=== PATIENT | female | born 1940 | race Caucasian/White ===

== ENCOUNTER → 2021-10-10 13:05 | Outpatient (CLI) | payer MEDICARE, SELFPAY ==
[2021-10-10 15:14] LABS: COVID19 -Nasal RAPID Negative (Negative)
== END ==
PROVIDERS: Referring Provider Physician Assistant; Visit Provider Physician Assistant
DX: Z20.822 Contact with and (suspected) exposure to COVID-19 (principal); R05.9 Cough, unspecified; R09.81 Nasal congestion
CPT/HCPCS: 87635

== ENCOUNTER → 2023-12-26 15:19 | Outpatient (CLI) | payer MEDICARE, SELFPAY ==
[2023-12-26 16:10] LABS: Influenza A - CEPHEID Flu A NEGATIVE (NEGATIVE); Influenza B - CEPHEID Flu B NEGATIVE (NEGATIVE); Respiratory Syncytial Virus Negative (Negative)
[2023-12-26 16:12] LABS: COVID-19 CEPHEID 4-PLEX PCR Negative (Negative)
== END ==
PROVIDERS: Visit Provider Registered Nurse
DX: Z20.828 Contact with and (suspected) exposure to other viral communicable diseases (principal)
CPT/HCPCS: 0241U

== ENCOUNTER 2024-12-10 16:44 | Emergency (ER) | payer MEDICARE, SELFPAY ==
[2024-12-10 16:47] VITALS: BP 176/87; PULSE 74; RESP 20; TEMP 36.4; O2SAT 95; BMI 19.3
--- NOTE | 2024-12-10 16:56 | DI.RAD.S_ITS ---
PROCEDURE: XR CHEST 1V INDICATIONS: Shortness of breath TECHNIQUE: One view of the chest was acquired. COMPARISON: None. FINDINGS: Surgical changes and devices: None. Lungs and pleura: Hyperinflation. Chronic emphysematous changes are noted. Mild pulmonary vascular congestion is seen. No definite focal infiltrate. No pleural effusions or pneumothorax. Mediastinum: Mediastinal contours appear normal. Heart size is normal. Bones and chest wall: No suspicious bony lesions. Overlying soft tissues appear unremarkable. IMPRESSION: COPD and mild congestion. No definite focal infiltrate. No significant pleural effusion or gross pneumothorax. Dictated by: Herson Armas M.D. on 12/10/2024 at 17:25 Approved by: Herson Armas M.D. on 12/10/2024 at 17:25
--- NOTE | 2024-12-10 16:56 | EKG_ITS ---
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
[2024-12-10 17:25] LABS: Add Manual Diff / Slide Review NO; Basophils Absolute Auto 100 /uL (0-100); Basophils Percent Auto 0.9 % (0-2); Eosinophils Absolute Auto 0 /uL (0-450); Eosinophils Percent Auto 0.5 % (2-4); Hematocrit 41.8 % (36-46); Lymphocytes Absolute Auto 1300 /uL (1100-4500); Mean Corpuscular HGB Conc 33.5 % (30-36); Mean Corpuscular Hemoglobin 31.6 PG (26-34); Mean Corpuscular Volume 94.2 fL (80-100); Monocytes Absolute Auto 900 /uL (0-900); Neutrophils Absolute Auto 5000 /uL (1500-7000); Neutrophils Percent Auto 68.6 % (50-75); Platelet Count 395 X10^3/uL (150-400); Red Blood Cell Count 4.44 X10^6/uL (4.0-5.2); Red Cell Distribution Width 13.4 % (11.6-14.8); White Blood Cell Count 7.4 X10^3/uL (4.5-11.0)
[2024-12-10 17:33] LABS: Prothrombin Time 11.1 SECONDS (9.4-12.5)
[2024-12-10 17:36] LABS: Lactate (Lactic Acid) 1.3 mmol/L (0.7-2.1)
[2024-12-10 17:37] LABS: Alanine Aminotransferase 35 IU/L (<35); Albumin 4.4 g/dL (3.5-5.0); Albumin Globulin Ratio 1.1 (1.0-2.8); Alkaline Phosphatase 123 U/L (38-126); Aspartate Aminotransferase 66 IU/L (14-36); BUN Creatinine Ratio 22.9 (6-22); Bilirubin Total 1.2 mg/dL (0.2-1.3); Blood Urea Nitrogen 11 mg/dL (7-17); Calcium 9.4 mg/dL (8.4-10.2); Carbon Dioxide 26 mmol/L (22-32); Chloride 93 mmol/L (98-107); Estimated Glomerular Filt Rate > 60 mL/min (>60); Globulin 3.9 g/dL (1.7-4.1); Glucose 112 mg/dL (80-110); Potassium 5.1 mmol/L (3.4-5.1); Sodium 126 mmol/L (137-145); Total Protein 8.3 g/dL (6.3-8.2)
[2024-12-10 17:41] LABS: Influenza A - CEPHEID Flu A POSITIVE (NEGATIVE); Influenza B - CEPHEID Flu B NEGATIVE (NEGATIVE); Respiratory Syncytial Virus Negative (Negative)
[2024-12-10 17:42] LABS: COVID-19 CEPHEID 4-PLEX PCR Negative (Negative)
[2024-12-10 17:49] LABS: HEMOLYSIS 164 (0-50); NT-proBNP (BNP-Adult 18+) 368 pg/mL (<450); Troponin I < 0.012 ng/mL (0.01-0.034)
--- NOTE | 2024-12-10 21:00 | PC.NURSE ---
FLU x one week with n/v/d
--- NOTE | 2024-12-10 21:28 | ED.SOB ---
HPI - SOB/Dyspnea General Chief Complaint: Shortness of Breath/Dyspnea Stated Complaint: flu symptoms, abd x1 wk Time Seen by Provider: 12/10/24 21:28 Source: patient Mode of arrival: Ambulatory Limitations: no limitations History of Present Illness HPI Narrative: A 84-year-old female without any significant past medical history comes into the ED from home with son for evaluation of shortness of breath flu-like symptoms. According to the patient she has been experiencing these symptoms for the past several days got worse today. Son at bedside states that he would similar symptoms, patient stating that she has not having any actual chest pain, denies any other symptoms such as headache visual disturbances did notice some mild nausea no vomiting and abdominal cramping but states that this has since resolved. Patient denies any recent travel denies blood thinner usage. Related Data Previous Rx's Medication Instructions Recorded inhalational spacing device #1 ea 10/10/21 ([employer] spacer) albuterol sulfate 90 mcg/actuation 2 puff inhalation Q4-6H PRN 09/28/22 aerosol inhaler shortness of breath #8.5 grams albuterol sulfate 90 mcg/actuation 2 puff inhalation Q4-6H PRN 12/26/23 aerosol inhaler shortness of breath or wheezing #8.5 grams ondansetron 4 mg disintegrating 4 mg PO Q8H PRN nausea and 12/10/24 tablet vomiting 5 days #15 tabs Allergies Allergy/AdvReac Type Severity Reaction Status Date / Time No Known Drug Allergies Allergy Verified 12/26/23 15:20 Review of Systems Review of Systems Narrative: General: Denies fever, chills, weight loss HEENT: Denies headache, eye drainage, eye irritation, head trauma, sore throat, voice change Cardiovascular: Denies any chest pain, palpitations, shortness of breath, tachycardia Respiratory: Positive shortness of breath, cough, denies wheeze, stridor GI/: Positive,nausea, Denies any abdominal pain, vomiting, diarrhea, bright red blood per rectum, melanotic stools, urinary frequency, urinary retention, dysuria, hematuria MSK: Denies any joint pain, muscle pains, swelling Skin: Denies any rashes, lesions, discoloration Neuro: Denies any headache, lightheadedness, dizziness, fainting, weakness Psych: Denies SI/HI Patient History Medical History Asthma Social History Smoking Status: Current every day smoker Smoking Status: Current every day smoker tobacco type: cigarettes Exam Narrative Exam Narrative: General: Cooperative, comfortable, well-developed, not in acute distress HEENT: Normocephalic, atraumatic, PERRLA, normal sclera, eyelids normal, Neck: Active full range of motion, atraumatic Chest: Normal to inspection, negative crepitus, no overlying erythema ecchymosis Respiratory: Normal respiratory effort, not in acute respiratory distress, clear to auscultation bilaterally negative cough, wheeze, tachypnea, rhonchi, rales Cardiology: Regular rate rhythm negative gallop, murmur, rubs GI/: Normal to inspection, soft, nonrigid, no tenderness to palpation, exam deferred MSK: Full range of active range of motion of all 4 extremities, atraumatic Skin: No rashes lesions noted Neuro: Alert awake oriented x3, moves all 4 extremities spontaneously, cranial nerves intact, able to answer all questions appropriately follows commands appropriately Psych: Cooperative, negative suicidal or homicidal ideations Initial Vital Signs Initial Vital Signs: Vital Signs Temperature 97.6 F 12/10/24 16:47 Pulse Rate 74 12/10/24 16:47 Respiratory Rate 20 12/10/24 16:47 Blood Pressure 176/87 H 12/10/24 16:47 Pulse Oximetry 95 12/10/24 16:47 Oxygen Delivery Method Room Air 12/10/24 16:47 Course Orders Ordered: ED Orders 12/10/24 16:56 XR chest 1V Stat EKG-12 Lead Stat Measure peak expiratory flow ONCE RT Consult Eval and Treat NOW 12/10/24 16:58 Covid-19 + FLU A/B + RSV - PCR Stat 12/10/24 17:14 Complete Blood Count AUTO DIFF Stat Comprehensive Metabolic Panel Stat Lactate (Lactic Acid) Stat NT-proBNP (BNP-Adult 18+) Stat Prothrombin Time INR Stat Troponin I Stat Vital Signs Vital signs: Vital Signs - 8 hr 12/10/24 16:47 Temperature 97.6 F Pulse Rate 74 Respiratory Rate 20 Blood Pressure 176/87 H Pulse Oximetry 95 Oxygen Delivery Method Room Air MDM - SOB/Dyspnea Differential Diagnosis Differential diagnosis: Likely other (ACS, pneumonia, CHF, electrolyte abnormality) Lab Data 12/10/24 17:14 12/10/24 17:14 Labs: Lab Results 12/10/24 12/10/24 Range/Units 16:58 17:14 WBC 7.4 (4.5-11.0) X10^3/uL RBC 4.44 (4.0-5.2) X10^6/uL Hgb 14.0 (12.0-16.0) g/dL Hct 41.8 (36-46) % MCV 94.2 (80-100) fL MCH 31.6 (26-34) PG MCHC 33.5 (30-36) % RDW 13.4 (11.6-14.8) % Plt Count 395 (150-400) X10^3/uL Neut % (Auto) 68.6 (50-75) % Lymph % (Auto) 18.0 L (25-40) % Clare % (Auto) 12.0 (3-14) % Eos % (Auto) 0.5 L (2-4) % Baso % (Auto) 0.9 (0-2) % Neut # (Auto) 5000 (3474-2227) /uL Lymph # (Auto) 1300 (3978-1700) /uL Clare # (Auto) 900 (0-900) /uL Eos # (Auto) 0 (0-450) /uL Baso # (Auto) 100 (0-100) /uL PT 11.1 (9.4-12.5) SECONDS INR 1.0 (0.9-1.3) Sodium 126 L (137-145) mmol/L Potassium 5.1 (3.4-5.1) mmol/L Chloride 93 L (98-107) mmol/L Carbon Dioxide 26 (22-32) mmol/L BUN 11 (7-17) mg/dL Creatinine 0.48 L (0.52-1.04) mg/dL Estimated GFR > 60 (>60) mL/min BUN/Creatinine Ratio 22.9 H (6-22) Glucose 112 H (80-110) mg/dL Lactate 1.3 (0.7-2.1) mmol/L Calcium 9.4 (8.4-10.2) mg/dL Total Bilirubin 1.2 (0.2-1.3) mg/dL AST 66 H (14-36) IU/L ALT 35 H (<35) IU/L Alkaline Phosphatase 123 (38-126) U/L Troponin I < 0.012 (0.01-0.034) ng/mL NT-Pro-B Natriuret Pep 368 (<450) pg/mL Total Protein 8.3 H (6.3-8.2) g/dL Albumin 4.4 (3.5-5.0) g/dL Globulin 3.9 (1.7-4.1) g/dL Albumin/Globulin Ratio 1.1 (1.0-2.8) SARS-CoV-2 (PCR) Negative (Negative) Influenza A (RT-PCR) Flu a positive H (NEGATIVE) Influenza B (RT-PCR) Flu b negative (NEGATIVE) RSV (PCR) Negative (Negative) Imaging Data Chest x-ray: Radiologist's Impression: [address] [address] XRay Report Signed Patient: Soco Joy MR#: [id number] : 1940 Acct:[id number] Age/Sex: 84 / F Date of Service: 12/10/24 Loc: ED Accession Number: [id number] Procedure: XR chest 1V Ordering Provider: Tami Gavin D.O. PROCEDURE: XR CHEST 1V INDICATIONS: Shortness of breath TECHNIQUE: One view of the chest was acquired. COMPARISON: None. FINDINGS: Surgical changes and devices: None. Lungs and pleura: Hyperinflation. Chronic emphysematous changes are noted. Mild pulmonary vascular congestion is seen. No definite focal infiltrate. No pleural effusions or pneumothorax. Mediastinum: Mediastinal contours appear normal. Heart size is normal. Bones and chest wall: No suspicious bony lesions. Overlying soft tissues appear unremarkable. IMPRESSION: COPD and mild congestion. No definite focal infiltrate. No significant pleural effusion or gross pneumothorax. ECG Data Interpretation: EKG interpreted ED physician sinus 74 beats per minute, normal axis nonspecific ST changes QTC 419 no STEMI MDM Narrative Medical decision making narrative: 84-year-old female without any significant past medical history presents for flu-like symptoms ongoing persistent for the past several days patient's son who lives with the patient has had similar symptoms. Patient had chest x-ray which did not show any signs of pneumonia, patient noted to be flu A positive. EKG nonischemic in nature, troponin negative, patient not requiring any supplemental oxygen here in the emergency department. She is well-appearing nontoxic, did complain of some mild nausea but no vomiting or abdominal pain. Patient will be sent home with symptomatic relief, she was given strict return precautions she verbalized understanding of this and agrees to being discharged home with outpatient follow up Discharge Plan Departure Patient Disposition: Home Clinical Impression: Influenza A Instructions: DI for Influenza -- Adult Activity Restrictions/Additional Instructions: Please follow up with your primary care doctor Please read the discharge instructions sheet carefully and bring all papers to all doctor follow-up visits, as it may contain information that your doctor may want to see. Disease processes change and evolve, if your symptoms worsen or if you develop any new symptoms that are concerning to you please return for evaluation. Your evaluation today does not show any evidence of any life-threatening/serious illnesses requiring admission to the hospital or surgery. Please follow-up with your doctor for re-evaluation in approximately 1 day. Seek immediate medical attention for any worrisome symptoms. *If you do not have a primary care provider please contact the [facility] Resource line at [phone]. They will ask some questions about your medical history and help get you set up with a doctor in the community. Prescriptions: New ondansetron 4 mg tablet,disintegrating 4 mg PO Q8H PRN (Reason: nausea and vomiting) 5 Days Qty: 15 0RF No Action (DME) [facility] Spacer See Rx Instructions .MEDSUPPLY Qty: 1 0RF Rx Instructions: Please use with albuterol inhaler. albuterol sulfate 90 mcg/actuation HFA aerosol inhaler 2 puff inhalation Q4-6H PRN (Reason: shortness of breath or wheezing) Qty: 8.5 0RF albuterol sulfate 90 mcg/actuation HFA aerosol inhaler 2 puff INHALATION Q4-6H PRN (Reason: shortness of breath) Qty: 8.5 1RF Referrals: Miscellaneous,Doctor, [Primary Care Provider] - Stand Alone Forms: Patient Portal/API/Survey
[2024-12-10 21:33] VITALS: BP 132/71; PULSE 75; O2SAT 94
[2024-12-10] MEDS: ONDANSETRON 4 MG ODT PREPACK 1 BOTTLE MISC (21:43)
== END 2024-12-10 21:45 | disposition home or self-care (01) ==
PROVIDERS: Emergency Medicine; Emergency Provider Student in an Organized Health Care Education/Training Program
DX: J10.1 Influenza due to other identified influenza virus with other respiratory manifestations (principal); R06.02 Shortness of breath; J45.909 Unspecified asthma, uncomplicated; F17.200 Nicotine dependence, unspecified, uncomplicated
CPT/HCPCS: 0241U; 36415; 71045; 80053; 83605; 83880; 84484; 85025; 85610; 93005; 99284